=== PATIENT | female | born 1995 | race Caucasian/White ===

== ENCOUNTER 2020-03-25 09:20 | Emergency (ER) | payer MEDICAID ==
[~2020-03-25] VITALS: Ht 154.9 cm; Wt 70.5 kg
[2020-03-25 09:43] VITALS: BP 102/56
[2020-03-25 10:32] LABS: BASOPHILS % (AUTO) 0.2 % (0-1); EOSINOPHILS # (AUTO) 0.2 X10'3 (0-0.9); EOSINOPHILS % (AUTO) 1.9 % (0-6); HEMATOCRIT 39.7 % (35.0-45.0); HEMOGLOBIN 13.7 g/dl (12.0-16.0); LYMPHOCYTES # (AUTO) 2.3 X10'3 (1.1-4.8); LYMPHOCYTES % (AUTO) 24.8 % (21-51); MEAN CORPUSCULAR HEMOGLOBIN 31.7 PG (27.0-31.0); MEAN CORPUSCULAR HGB CONC 34.4 g/dL (33.0-36.5); MEAN PLATELET VOLUME 9.9 FL (7.4-10.4); MONOCYTES # (AUTO) 0.9 X10'3 (0-0.9); NEUTROPHILS # (AUTO) 5.8 X10'3 (1.8-7.7); NEUTROPHILS % (AUTO) 63.1 % (42-75); PLATELET COUNT 260 X10'3 (140-440); RED BLOOD COUNT 4.32 X10'6 (4.20-5.60); RED CELL DISTRIBUTION WIDTH 12.7 % (11.5-14.5); WHITE BLOOD COUNT 9.2 X10'3 (4.5-11.0)
[2020-03-25 10:43] LABS: ALANINE AMINOTRANSFERASE 40 U/L (12-78); ALBUMIN 3.9 G/DL (3.4-5.0); ALKALINE PHOSPHATASE 142 IU/L (46-116); ANION GAP 8 (8-16); ASPARTATE AMINO TRANSFERASE 19 U/L (10-37); BILIRUBIN,TOTAL 0.6 MG/DL (0.1-1.0); BLOOD UREA NITROGEN 11 MG/DL (7-18); BUN/CREATININE RATIO 19.6 (6.6-38.0); CALCIUM 8.7 MG/DL (8.5-10.1); CHLORIDE 105 MMOL/L (99-107); CREATININE 0.56 MG/DL (0.40-0.90); GLUCOSE 99 MG/DL (70-104); LIPASE 110 U/L (73-393); POTASSIUM 4.1 MMOL/L (3.5-5.1); SODIUM 141 MMOL/L (135-145); TOTAL CARBON DIOXIDE 28.3 MMOL/L (24-32); TOTAL PROTEIN 7.7 G/DL (6.4-8.2); eGFR > 90 ML/MIN
--- NOTE | 2020-03-25 12:50 | NUR ---
Attempted to bring patient back to room x3, patient was not in lobby. Attempted to call patient, did not leave a voice mail due to voicemail message stated phone belonged to eliceo pedroza. Dr. Bruno aware. Patient LWOBS
== END 2020-03-25 12:51 | disposition left against medical advice (07) ==
LOC: ER 09:21
DX: R10.84 Generalized abdominal pain (principal); Z53.21 Procedure and treatment not carried out due to patient leaving prior to being seen by health care provider
CPT/HCPCS: 36415; 80053; 83690; 85025

== ENCOUNTER 2020-06-17 16:57 | Emergency (ER) | payer MEDICAID ==
[~2020-06-17] VITALS: Ht 154.9 cm; Wt 67.8 kg
[2020-06-17 17:43] LABS: BASOPHILS % (AUTO) 0.2 % (0-1); EOSINOPHILS # (AUTO) 0.2 X10'3 (0-0.9); EOSINOPHILS % (AUTO) 2.6 % (0-6); HEMATOCRIT 38.8 % (35.0-45.0); HEMOGLOBIN 12.9 g/dl (12.0-16.0); LYMPHOCYTES # (AUTO) 1.8 X10'3 (1.1-4.8); LYMPHOCYTES % (AUTO) 18.6 % (21-51); MEAN CORPUSCULAR HEMOGLOBIN 30.4 PG (27.0-31.0); MEAN CORPUSCULAR HGB CONC 33.3 g/dL (33.0-36.5); MEAN CORPUSCULAR VOLUME 91.3 FL (78-98); MEAN PLATELET VOLUME 10.4 FL (7.4-10.4); MONOCYTES # (AUTO) 0.9 X10'3 (0-0.9); MONOCYTES % (AUTO) 9.7 % (2-12); NEUTROPHILS # (AUTO) 6.6 X10'3 (1.8-7.7); NEUTROPHILS % (AUTO) 68.9 % (42-75); PLATELET COUNT 250 X10'3 (140-440); RED BLOOD COUNT 4.25 X10'6 (4.20-5.60); RED CELL DISTRIBUTION WIDTH 13.1 % (11.5-14.5); WHITE BLOOD COUNT 9.5 X10'3 (4.5-11.0)
[2020-06-17 17:52] LABS: CLARITY,URINE CLOUDY (Clear); COLOR,URINE YELLOW (Yellow); GLUCOSE, URINE NEGATIVE (Neg); KETONES,URINE NEGATIVE (Neg); LEUKOCYTE ESTERASE ,URINE NEGATIVE (Neg); NITRITES, URINE NEGATIVE (Neg); OCCULT BLOOD,URINE TRACE-INTACT (Neg); PROTEIN,URINE NEGATIVE (Neg); UROBILINOGEN,URINE 0.2 E.U/dL (0.2-1.0)
[2020-06-17 17:53] LABS: UA COLLECTION TYPE CLN CATCH MIDSTREAM
[2020-06-17 17:54] LABS: URINE HCG NEGATIVE (NEG)
[2020-06-17 17:56] LABS: ALANINE AMINOTRANSFERASE 57 U/L (12-78); ALBUMIN 3.5 G/DL (3.4-5.0); ALKALINE PHOSPHATASE 146 IU/L (46-116); ANION GAP 9 (8-16); ASPARTATE AMINO TRANSFERASE 28 U/L (10-37); BILIRUBIN,TOTAL 0.4 MG/DL (0.1-1.0); BLOOD UREA NITROGEN 13 MG/DL (7-18); CALCIUM 9.3 MG/DL (8.5-10.1); CHLORIDE 106 MMOL/L (99-107); CREATININE 0.62 MG/DL (0.40-0.90); GLUCOSE 114 MG/DL (70-104); LIPASE 122 U/L (73-393); POTASSIUM 3.8 MMOL/L (3.5-5.1); SODIUM 143 MMOL/L (135-145); TOTAL CARBON DIOXIDE 27.9 MMOL/L (24-32); TOTAL PROTEIN 7.1 G/DL (6.4-8.2); eGFR > 90 ML/MIN
[2020-06-17 17:57] LABS: CAL OXALATE CRYSTALS 4+ /HPF (NEGATIVE)
[2020-06-17 17:58] LABS: BACTERIA,URINE FEW /HPF (Neg); MUCUS STRANDS MODERATE /LPF (Neg); RBC,URINE 0-2 /HPF (0-2); SQUAMOUS EPITHELIAL CELL,UR FEW /LPF (FEW); WBC,URINE 0-4 /HPF (0-4)
[2020-06-17] MEDS ORDERED: DICY10CA88 PO (18:18)
[2020-06-17 18:47] VITALS: BP 115/82
== END 2020-06-17 18:49 | disposition home or self-care (01) ==
LOC: ER 16:57
DX: R10.13 Epigastric pain (principal); R19.7 Diarrhea, unspecified; R11.0 Nausea
CPT/HCPCS: 36415; 80053; 81001; 81025; 83690; 85025; 99283

== ENCOUNTER 2021-02-13 18:03 | Emergency (ER) | payer MEDICAID ==
[~2021-02-13 18:03] MED LIST: DICY10CA88 PO
--- NOTE | 2021-02-13 18:19 | NUR ---
pt called, not in lobby
== END 2021-02-13 19:06 | disposition left against medical advice (07) ==
LOC: ER 18:04
DX: L50.9 Urticaria, unspecified (principal); Z53.21 Procedure and treatment not carried out due to patient leaving prior to being seen by health care provider

== ENCOUNTER 2024-12-31 19:07 | Emergency (ER) | payer MEDICAID ==
[~2024-12-31] VITALS: Ht 157.5 cm; Wt 79.4 kg
--- NOTE | 2024-12-31 19:35 | ELECTROCARDIOGRAPH REPORT ---
[facility] Test Date: 2024-12-31 Test Time: 19:33:52 Pat Name: EWELINA DANIELS Department: EMERGENCY ROOM Room: Gender: F Co Pilot: ELIZABETH : 1995 Requested By: ALL CANCINO Order Number: [id number] Reading MD: Measurements Intervals [place] Rate: 116 P: 38 [place]: 127 QRS: 29 QRSD: 86 T: -11 QT: 312 QTc: 434 Interpretive Statements Sinus tachycardia Probable left atrial enlargement Borderline T abnormalities, diffuse leads Please click the below link to view image of tracing.
[2024-12-31 19:59] LABS: MEAN PLATELET VOLUME 10.1 FL (7.4-10.4); RED CELL DISTRIBUTION WIDTH 13.4 % (11.5-14.5)
[2024-12-31 20:14] LABS: APTT 27 SECONDS (22-32); CREATININE 0.64 MG/DL (0.40-0.90); ETHANOL < 10 MG/DL (<10); INR 1.0 INR; TOTAL CARBON DIOXIDE 25.1 MMOL/L (24-32); eCRCL 104 ML/MIN; eGFR > 90 ML/MIN
[2024-12-31 20:23] LABS: URINE HCG NEGATIVE (NEG)
[2024-12-31 20:36] LABS: URINE AMPHETAMINE SCREEN NEGATIVE (Neg); URINE BARBITUATE SCREEN NEGATIVE (Neg); URINE BENZODIAZEPINES SCREEN NEGATIVE (Neg); URINE CANNABINOID SCREEN NEGATIVE (Neg); URINE COCAINE SCREEN NEGATIVE (Neg); URINE METHADONE SCREEN NEGATIVE (Neg); URINE OPIATE SCREEN NEGATIVE (Neg); URINE PHENCYCLIDINE SCREEN NEGATIVE (Neg)
[2024-12-31 20:37] LABS: LEUKOCYTE ESTERASE ,URINE TRACE (Neg); NITRITES, URINE NEGATIVE (Neg); OCCULT BLOOD,URINE MODERATE (Neg); UA COLLECTION TYPE CLN CATCH MIDSTREAM
[2024-12-31 21:00] LABS: HYALINE CASTS 0-3 /LPF (NEGATIVE); SQUAMOUS EPITHELIAL CELL,UR MODERATE /LPF (FEW)
--- NOTE | 2024-12-31 23:54 | ELECTROCARDIOGRAPH REPORT ---
[facility] Test Date: 2024-12-31 Test Time: 23:51:45 Pat Name: EWELINA DANIELS Department: [facility]- Patient ID: [id number] Room: Gender: F Manager Icu: : 1995 Requested By: ALL CANCINO Order Number: [id number] Reading MD: Measurements Intervals [place] Rate: 96 P: 55 ND: 132 QRS: 42 QRSD: 84 T: 19 QT: 330 QTc: 417 Interpretive Statements Sinus rhythm Low voltage, precordial leads Please click the below link to view image of tracing.
[2025-01-01 00:58] VITALS: BP 112/70; PULSE 90; RESP 14; TEMP 98.5; O2SAT 99
--- NOTE | 2025-01-01 01:18 | Physician Documentation ---
History of Present Illness ~ Chief Complaint: Overdose Stated Complaint: MED PROBLEM Time Seen by MD: 19:40 Primary Medical Doctor: Dr. Prater Mode of Arrival: Ambulatory HPI Patient is here for unintentional overdose. She took two large gulps of ZzzQuil. She thought it had Tylenol in it. She has autism and she was under the impression that Tylenol helped autism. This was not attempted self-harm. Medication Reconciliation Allergies: Coded Allergies: No Known Allergies (Unverified , 03/25/20) Scheduled Dicyclomine Hcl* (Bentyl*), 1 CAP PO TID Past Medical History Past Medical History: No Pertinent History Past Surgical History: no surgical history Smoking Status: Never smoker Alcohol Use: None Lives In: Home Physical Exam Vital Signs: Temperature: 98.5, Source: Oral, Heart Rate: 90, Respiratory Rate: 14, BP: 112/70, Pulse Oximetry: 99, Weight: 79.360 Oxygen Flow Rate: 0 Physical Exam General: Awake and Alert, no acute distress. HEENT: Conjunctiva pink, Sclera clear, Mucus Membranes moist. Neck: Supple without masses and tenderness. Resp: Unlabored. Lungs clear to auscultation bilaterally. Heart: Tachycardic and rhythm, normal S1 and S2 without murmur, rub or gallop. Abdomen: Soft and non tender no organomegaly Extremities: No cyanosis,clubbing or edema. Skin: Warm and Dry. Neuro: GCS 15; no focal deficits Psych: She denies being suicidal or homicidal. Progress Results/Orders Results/Orders Orders - ALL CANCINO MD Cult Urine + [address] (12/31/24 21:00) Completed Orders - ALL CANCINO MD Cbc/Diff (12/31/24 19:23) BMP (12/31/24 19:23) Electrocardiogram (12/31/24 19:23) Drug Screen, Urine (12/31/24 19:23) Ethanol (12/31/24 19:23) Salicylate (12/31/24 19:23) Acetaminophen (12/31/24 19:23) Lipase (12/31/24 19:23) PTT (12/31/24 19:30) Pt Inr (12/31/24 19:30) Hcg, Ur Ql (12/31/24 19:30) Ua W/Microscopic, Cult If Ind (12/31/24 20:13) Acetaminophen (12/31/24 23:36) AST (12/31/24 23:42) ALT (12/31/24 23:42) Stat Ekg (12/31/24 ) Vital Signs 12/31/24 12/31/24 12/31/24 01/01/25 19:10 19:48 19:52 00:58 Temp 98.5 98.5 Pulse 102 105 90 Resp 16 18 14 B/P (MAP) 125/81 132/66 (88) 112/70 (84) Pulse Ox 98 97 99 O2 Flow Rate 0 0 Laboratory Tests Test 12/31/24 19:51 12/31/24 20:13 12/31/24 23:51 White Blood Count 13.9 H Red Blood Count 4.67 Hemoglobin 13.9 Hematocrit 41.6 Mean Corpuscular Volume 89.2 Mean Corpuscular Hemoglobin 29.8 Mean Corpuscular Hemoglobin Concent 33.4 Red Cell Distribution Width 13.4 Platelet Count 346 Mean Platelet Volume 10.1 Neutrophils (%) (Auto) 67.9 Lymphocytes (%) (Auto) 22.2 Monocytes (%) (Auto) 8.1 Eosinophils (%) (Auto) 1.4 Basophils (%) (Auto) 0.4 Neutrophils # (Auto) 9.4 H Lymphocytes # (Auto) 3.1 Monocytes # (Auto) 1.1 H Eosinophils # (Auto) 0.2 Basophils # (Auto) 0.1 CBC Comment Prothrombin Time 10.5 INR International Normalized Ratio 1.0 Activated Partial Thromboplast Time 27 Coagulation Comments Sodium Level 140 Potassium Level 3.1 L Chloride Level 106 Carbon Dioxide Level 25.1 Anion Gap 9 Blood Urea Nitrogen 10 Creatinine 0.64 Estimated GFR/1.73 m2 > 90 BUN/Creatinine Ratio 15.6 Glucose Level 96 Calcium Level 8.7 Albumin 3.7 Lipase 33 Chemistry Comments Salicylates Level 1.2 L Acetaminophen Level < 2.0 L < 2.0 L Ethyl Alcohol Level < 10 Urine Specimen Description Cln catch midstream Urine Color Yellow Urine Clarity Slightly cloudy Urine pH 6.0 Urine Specific [place] >=1.030 Urine Protein Negative Urine Glucose (UA) Negative Urine Ketones Negative Urine Occult Blood Moderate H Urine Nitrite Negative Urine Bilirubin Negative Urine Urobilinogen 0.2 Urine Leukocyte Esterase Trace H Urine RBC 0-2 Urine WBC 5-10 H Urine Squamous Epithelial Cells Moderate Urine Bacteria 3+ Urine Hyaline Casts 0-3 Urine Culture Indicated Indicated Volume Urine Centrifuged 10 ml Urine HCG, Qualitative Negative Urine Comment Urine Opiates Screen Negative Urine Methadone Screen Negative Urine Fentanyl Screen Negative Urine Barbiturates Screen Negative Urine Phencyclidine Screen Negative Urine Amphetamines Screen Negative Urine Benzodiazepines Screen Negative Urine Cocaine Screen Negative Urine Cannabinoids Screen Negative Drug Screen Comment Aspartate Amino Transf (AST/SGOT) 11 Alanine Aminotransferase (ALT/SGPT) 21 Microbiology Date/Time Source Procedure Growth Status 12/31/24 21:00 Urine Clean Catch Midstream Urine Culture - Preliminary Culture received. Resulted Medical Decision Making Findings Initial EKG as interpreted by me shows a sinus rhythm with 116 beats per minute axis intervals ST segments are unremarkable Repeat EKG as interpreted by me shows a sinus rhythm of 96 beats per minute axis intervals ST segments are normal T is 330. Patient is here for unintentional overdose of [id number] medication: Equal which has diphenhydramine in it. She said that she took two large gulps. She was mildly tachycardic on arrival. Poison control was consulted. Acetaminophen level at 4:00 a.m. were negative repeat LFTs were normal. After 6 hours of observation a repeat EKG was done that is also normal patient is resting comfortably and was discharged home. No signs of anticholinergic toxicity Departure Disposition: 01 HOME / SELF CARE / HOMELESS Impression: Primary Impression: Diphenhydramine overdose Qualified Codes: T45.0X1A - Poisoning by antiallergic and antiemetic drugs, accidental (unintentional), initial encounter Condition: Stable Discharge Instructions: Accidental Drug Poisoning, Adult Referrals: NO PRIMARY CARE PROVIDER (PCP) Education Educated: Patient Educated regarding: diagnosis, treatment, prognosis, need for follow up Signature Scribe Signature: no scribe Attestation: no scribe ALL CANCINO MD Jan 01, 2025 01:18
== END 2025-01-01 02:07 | disposition home or self-care (01) ==
LOC: ER 19:07
DX: T39.1X1A Poisoning by 4-Aminophenol derivatives, accidental (unintentional), initial encounter (principal); R40.0 Somnolence; R06.02 Shortness of breath; Z79.899 Other long term (current) drug therapy; Y92.89 Other specified places as the place of occurrence of the external cause
CPT/HCPCS: 36415; 80048; 80305; 80320; 80329; 81001; 81025; 83690; 84450; 84460; 85025; 85610; 85730; 87088; 93005; 99285